=== PATIENT | male | born 2000 | race African-American/Black ===

== ENCOUNTER 2023-07-02 22:52 | Emergency (ER) | payer OTHER ==
[~2023-07-02] VITALS: Ht 175.3 cm; Wt 208.0 kg
[2023-07-03] MEDS ORDERED: VENTOLIN HFA108 MCG IN (02:12)
[2023-07-03] MEDS ORDERED: AMOX/K CLAV875 M1 PO (02:12)
[2023-07-03] MEDS ORDERED: MEDDOSEPAK PO (02:12)
[2023-07-03 02:15] VITALS: BP 136/70
== END 2023-07-03 02:14 | disposition home or self-care (01) ==
LOC: ED 22:52
DX: J32.9 Chronic sinusitis, unspecified (principal); I10 Essential (primary) hypertension; E11.9 Type 2 diabetes mellitus without complications; E66.9 Obesity, unspecified; F17.200 Nicotine dependence, unspecified, uncomplicated

== ENCOUNTER 2023-10-26 05:38 | Emergency (ER) | payer OTHER ==
[2023-10-26] VITALS (8 sets, daily range): BP systolic 151–194; BP diastolic 103–128
[~2023-10-26] VITALS: Ht 175.3 cm; Wt 205.0 kg
[~2023-10-26 05:38] MED LIST: AMOX/K CLAV875 M1 PO; MEDDOSEPAK PO; VENTOLIN HFA108 MCG IN
[2023-10-26] MEDS ORDERED: CLONIDINE0.2 MG PO (06:35)
[2023-10-26] MEDS ORDERED: NORVASC PO (06:35)
[2023-10-26] MEDS ORDERED: ZPAK PO (06:35)
== END 2023-10-26 06:52 | disposition home or self-care (01) ==
LOC: ED 05:38
DX: J32.9 Chronic sinusitis, unspecified (principal); H92.02 Otalgia, left ear; I10 Essential (primary) hypertension; E11.9 Type 2 diabetes mellitus without complications; E66.9 Obesity, unspecified; T46.1X6A Underdosing of calcium-channel blockers, initial encounter; Z91.128 Patient's intentional underdosing of medication regimen for other reason; Z72.0 Tobacco use; Z20.822 Contact with and (suspected) exposure to COVID-19

== ENCOUNTER 2023-12-02 23:49 | Emergency (ER) | payer OTHER ==
[~2023-12-02 23:49] MED LIST changes: +CLONIDINE0.2 MG PO; +NORVASC PO; +ZPAK PO
== END 2023-12-03 01:40 | disposition left against medical advice (07) | DRG 951 ==
LOC: ED 23:49 → LWOBS 12-03 01:40 → ED 12-03 01:40
DX: Z53.21 Procedure and treatment not carried out due to patient leaving prior to being seen by health care provider (principal)